=== PATIENT | male | born 1955 | race African-American/Black ===

== ENCOUNTER → 2018-06-28 08:35 | Outpatient (CLI) | payer OTHER ==
[~2018-06-28 08:35] MED LIST: BACLOFEN20 M1 PO; BP MEDICINE; TORADOL10 MG PO; VOLTAREN75 MG PO
== END | disposition home or self-care (01) ==
LOC: D.RAD 08:35
DX: M54.42 Lumbago with sciatica, left side (principal); G89.29 Other chronic pain

== ENCOUNTER 2018-11-20 19:57 | Emergency (ER) | payer OTHER ==
[~2018-11-20] VITALS: Ht 172.7 cm; Wt 79.5 kg
[2018-11-20 20:23] VITALS: Ht 172.7 cm; Wt 79.5 kg
[2018-11-20] MEDS ORDERED: BP MEDICINE (20:24)
[2018-11-20] MEDS ORDERED: VOLTAREN75 MG PO (22:21)
[2018-11-20] MEDS ORDERED: BACLOFEN20 M1 PO (22:21)
[2018-11-20 22:27] VITALS: BP 137/72
== END 2018-11-20 22:28 | disposition home or self-care (01) ==
LOC: D.ER 19:57
DX: S16.1XXA Strain of muscle, fascia and tendon at neck level, initial encounter (principal); V43.52XA Car driver injured in collision with other type car in traffic accident, initial encounter; F17.210 Nicotine dependence, cigarettes, uncomplicated

== ENCOUNTER 2018-11-25 11:48 | Emergency (ER) | payer OTHER ==
[~2018-11-25] VITALS: Ht 172.7 cm; Wt 79.5 kg
[~2018-11-25 11:48] MED LIST changes: -TORADOL10 MG PO
[2018-11-25 12:13] VITALS: Ht 172.7 cm; Wt 79.5 kg
[2018-11-25] MEDS ORDERED: TORADOL10 MG PO (14:57)
[2018-11-25 15:05] VITALS: BP 158/88
== END 2018-11-25 15:05 | disposition home or self-care (01) ==
LOC: D.ER 11:48
DX: M54.5 Low back pain (principal); I10 Essential (primary) hypertension; S29.012A Strain of muscle and tendon of back wall of thorax, initial encounter; V89.2XXA Person injured in unspecified motor-vehicle accident, traffic, initial encounter